=== PATIENT | male | born 1970 | race Caucasian/White ===

== ENCOUNTER 2020-10-18 15:16 | Emergency (ER) | payer BC, SELFPAY ==
--- NOTE | ~2020-10-18 | XR_ITS ---
XR finger 2nd RT min 2V DATE: 10/18/2020 15:44 INDICATION: Smashed second digit at the distal interphalangeal joint TECHNIQUE: 4 views COMPARISON: None FINDINGS: There is mild spurring consistent with osteophyte is at the distal interphalangeal joint of the second digit. No fracture or dislocation, periosteal reaction or bone destruction, radiopaque soft tissue foreign b gray or subcutaneous emphysema of the second digit is evident. 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
[2020-10-18 15:26] VITALS: BP 150/94; PULSE 84; RESP 18; TEMP 36.4; O2SAT 100
--- NOTE | 2020-10-18 15:28 | ED.UPPEXIN ---
HPI - Extremity Injury (Upper) General Chief Complaint: Extremity Injury, Upper Stated Complaint: right 2nd finger Time Seen by Provider: 10/18/20 15:29 Source: patient and RN notes reviewed Mode of arrival: ambulatory Limitations: no limitations History of Present Illness HPI narrative: 50-year-old male presents with concern for injury to the second digit of the right hand. Reports 4 days ago he smashed the hand under an appliance. Reports he has been using antibacterial ointment and a bandage. Reports initial bleeding near the fingernail, no subsequent bleeding since the day of the injury. He denies any current open skin. Reports bruising, pain, swelling. Denies pain with flexion of the DIP joint MD complaint: injury to: right and finger Related Data Home Medications Medication Instructions Recorded Confirmed No Home Medications 10/18/20 10/18/20 Allergies Allergy/AdvReac Type Severity Reaction Status Date / Time No Known Allergies Allergy Verified 10/18/20 15:20 Review of Systems Review of Systems: CONSTITUTIONAL: Denies malaise, chills, sweats, or fever. SKIN: Reports redness, bruising, swelling to the distal second digit of the right hand MUSCULOSKELETAL: Reports pain to the distal second digit of the right hand NEUROLOGIC: Denies numbness, weakness All systems reviewed & are unremarkable except as noted in HPI and below PMFSH Comments At time of signature, agree with nursing past medical, surgical, social and family history. There is no relevant family history pertinent to the presenting complaint Exam Narrative: GENERAL: Well-appearing, well-nourished, and in no acute distress. HEAD: Normocephalic EYES: PERRLA, conjunctivae clear NECK: Supple. CHEST: Speaks in full sentences. No respiratory distress. HEART: Regular rate and rhythm. Normal and equal peripheral pulses. EXTREMITIES: Second digit right hand has normal strength and sensation. 5/5 strength with digit flexion, extension. Range of motion normal. No clubbing, cyanosis. Mild distal tenderness, edema and ecchymosis concentrated the proximal edge of the nailbed without fluctuation or purulent appearance or drainage. Skin intact. Normal digital cascade with flexion of fingers, median, ulnar and radial nerve intact. Normal sensation of each side of finger. Can perform 'okay' sign, 'cross over finger test of index and middle fingers' and 'thumbs up' sign. No scissoring. Normal thumb opposition. Good capillary refill and radial pulse. Distal capillary refill less than 3 seconds. SKIN: Warn, dry, intact, pink. No rash NEURO: Alert and oriented x3. PSYCH: Normal mood and affect Course Course Emergency Course: Patient is aware of diagnosis, understands and agrees to treatment plan. Anticipatory guidance given. Patient agrees to follow-up as directed and is aware of reasons to seek care at the emergency department. Portions of this record may have been created with voice recognition software Vital Signs Vital signs: Vital Signs Temperature 97.5 F L 10/18/20 15:26 Pulse Rate 84 10/18/20 15:26 Respiratory Rate 18 10/18/20 15:26 Blood Pressure 150/94 H 10/18/20 15:26 Pulse Oximetry 100 10/18/20 15:26 Temperature 97.5 F L 10/18/20 15:26 Pulse Rate 84 10/18/20 15:26 Respiratory Rate 18 10/18/20 15:26 Blood Pressure 150/94 H 10/18/20 15:26 Pulse Oximetry 100 10/18/20 15:26 Reviewed. MDM - Extremity Injury (Upper) MDM Narrative Medical decision making narrative: Patients injury and pain is consistent with musculoskeletal etiology. No signs of neurological or vascular compromise on exam. Compartments and tissues are soft without signs of compartment syndrome. Pain is felt appropriate for further evaluation on an outpatient basis. Imaging Data My impression: Images reviewed, interpreted by radiologist, agree, see report. Radiologist's impression: XR finger 2nd RT min 2V DATE: 10/18/2020 15:44 INDICATION: Smashed second d
[2020-10-18 15:32] VITALS: BP 150/94; PULSE 84; RESP 18; TEMP 36.4; O2SAT 100
== END 2020-10-18 16:02 | disposition home or self-care (01) ==
PROVIDERS: Emergency Provider Nurse Practitioner
DX: S60.021A Contusion of right index finger without damage to nail, initial encounter (principal); X58.XXXA Exposure to other specified factors, initial encounter
CPT/HCPCS: 73140; 99203; G0463